=== PATIENT | male | born 1945 | race Caucasian/White ===

== ENCOUNTER 2016-06-12 00:53 | Emergency (ER) | payer MEDICARE, OTHER ==
[~2016-06-12] VITALS: Ht 182.9 cm; Wt 90.9 kg
[2016-06-12 00:58] VITALS: Ht 182.9 cm; Wt 90.9 kg
--- NOTE | 2016-06-12 02:13 | ERD ---
ER Documentation Chief Complaint Date/Time DATE: 06/12/16 TIME: 02:10 Chief Complaint DEPRESSION, ANXIETY, DENIES SI/HI, "I'M JUST MESSED UP AND I NEED HELP" HPI 71-year-old male presents here in emergency department for complaint of depression and anxiety, patient has history of depression and anxiety, has not seen psychiatric doctor for months now. Patient states that he feels more depressed and anxious tonight. Patient denies denies any homicidal ideation. Patient denies any hallucinations or delusions. Patient not currently on any medications. ROS All systems reviewed and are negative except as per history of present illness. Medications Home Meds Reported Medications [none] Unknown Strength No Conflict Check 06/12/16 Allergies Allergies: Coded Allergies: No Known Allergy (Unverified , 06/12/16) PMhx/Soc Medical and Surgical Hx: pt denies Surgical Hx History of Surgery: No Anesthesia Reaction: No Hx Neurological Disorder: No Hx Respiratory Disorders: No Hx Cardiac Disorders: No Hx Psychiatric Problems: Yes (bipolar, anxiety) Hx Miscellaneous Medical Probl: No Hx Alcohol Use: Yes Hx Substance Use: Yes (marijuana) Hx Tobacco Use: Yes Smoking Status: Current every day smoker FmHx Family History: No coronary disease, No diabetes, No other Physical Exam Vitals Vital Signs Date Time Temp Pulse Resp B/P Pulse Ox O2 Delivery O2 Flow Rate FiO2 06/12/16 00:58 97.9 67 16 172/77 99 Physical Exam GENERAL: The patient is well developed and appropriate for usual state of health, in no apparent distress. CHEST: Clear to auscultation bilaterally. There are no rales, wheezes or rhonchi. HEART: Regular rate and rhythm. No murmurs, clicks, rubs or gallops. No S3 or S4. ABDOMEN: Soft, nontender and nondistended. Good bowel sounds. No rebound or guarding. No gross peritonitis. No gross organomegaly or masses. No Santiago sign or McBurney point tenderness. BACK: No midline or flank tenderness. EXTREMITIES: Equal pulses bilaterally. There is no peripheral clubbing, cyanosis or edema. No focal swelling or erythema. Full range of motion. Grossly neurovascularly intact. NEURO: Alert and oriented. Cranial nerves 2-12 intact. Motor strength in all 4 extremities with 5/5 strength. Sensation grossly intact. Normal speech and gait. SKIN: There is no apparent rash or petechia. The skin is warm and dry. HEMATOLOGIC AND LYMPHATIC: There is no evidence of excessive bruising or lymphedema. No gross cervical, axillary, or inguinal lymphadenopathy. PSYCHIATRIC: Patien calm and cooperative, not verbalizing homicidal or suicidal ideations. Normal affect. Procedures/MDM Medical decision making: Patient symptoms like is consistent with his anxiety and depression, this time, patient does not have any symptoms of psychiatric emergencies, no verbalizing or homicidal or suicidal ideation, is not a danger to self or others. Patient is stable at this time, verbalized understanding of instructions to see early childhood education specialist in the morning, patient was given resources were to go, patient was also given resources to a 24-hour psychiatric facility where he can go for emergent evaluation if he wants to be seen tonight. Patient is stable at this time, does not have any physical signs of anxiety, has normal affect, does not verbalize homicidal or suicidal ideation. Patient is advised to return to emergency department for psychiatric emergency, homicidal, suicidal ideation, paranoia, hallucinations or delusions. Departure Diagnosis: Primary Impression: Anxiety Additional Impression: Depression Depression Type: unspecified Qualified Code: F32.9 - Depression, unspecified depression type Condition: Stable Patient Instructions: Anxiety Reaction, Depression Additional Instructions: see psychiatric doctor in 1- 2days, if you feel like hurting yourself or hurting others, please return to ER immediately LEIGH JESSICA NP June 12, 2016 02:13
[2016-06-12] MEDS ORDERED: DIVA250T4 PO (18:12)
[2016-06-12] MEDS ORDERED: CLON1TAB3 PO (18:13)
[2016-06-12] MEDS ORDERED: LOSA50TA6 PO (18:13)
[2016-06-12] MEDS ORDERED: OLAN5TAB5 PO (18:14)
[2016-06-12] MEDS ORDERED: HYDR-906 PO (18:14)
[2016-06-12] MEDS ORDERED: IBUP800T25 PO (18:19)
[2016-06-12] MEDS ORDERED: HYDR-902 PO (18:19)
[2016-06-12] MEDS ORDERED: TAMS-14 PO (18:19)
== END 2016-06-12 02:41 | disposition home or self-care (01) ==
LOC: E/R 00:53 → FTE 02:41
DX: F41.9 Anxiety disorder, unspecified (principal); F32.9 Major depressive disorder, single episode, unspecified; F17.210 Nicotine dependence, cigarettes, uncomplicated
CPT/HCPCS: 99284

== ENCOUNTER 2016-06-12 16:10 | Emergency (ER) | payer MEDICARE, OTHER ==
[~2016-06-12] VITALS: Ht 182.9 cm; Wt 90.9 kg
[2016-06-12] MEDS ORDERED: morphine 2 MG INJ IV STA (16:17)
[2016-06-12] MEDS ORDERED: ONDANSETRON 4 MG INJ IV STA (16:17)
[2016-06-12] MEDS ORDERED: SOD CHLORIDE 0.9% 500 ML IV STA (16:17)
[2016-06-12 16:27] VITALS: Ht 182.9 cm; Wt 90.9 kg
[2016-06-12 16:33] LABS: ADD SCAN DIFF NO
[2016-06-12 16:37] LABS: BASOPHILS % 0.2 % (0.0-2.0); EOSINOPHILS % 0.2 % (0.0-7.0); HEMATOCRIT 39.4 % (42.0-52.0); HEMOGLOBIN 13.4 g/dl (14.0-18.0); LYMPHOCYTES # 2.3 10^3/ul (0.8-2.9); LYMPHOCYTES % 22.3 % (15.0-51.0); MEAN CORPUSCULAR HEMOGLOBIN 31.7 pg (29.0-33.0); MEAN CORPUSCULAR VOLUME 93.1 fl (82.0-101.0); MEAN PLATELET VOLUME 12.4 fl (7.4-10.4); MONOCYTE # 0.6 10^3/ul (0.3-0.9); MONOCYTES % 5.5 % (0.0-11.0); NEUTROPHIL # 7.3 10^3/ul (1.6-7.5); NEUTROPHILS % 71.5 % (39.0-77.0); PLATELET COUNT 179 10^3/UL (140-415); RED BLOOD COUNT 4.23 10^6/ul (4.70-6.10); RED CELL DISTRIBUTION WIDTH 12.3 % (11.5-14.5); WHITE BLOOD COUNT 10.2 10^3/ul (4.8-10.8)
[2016-06-12 16:49] LABS: POTASSIUM 3.9 mmol/L (3.5-5.1)
[2016-06-12 16:51] LABS: ALBUMIN/GLOBULIN RATIO 1.25; BILIRUBIN,INDIRECT 1.6 mg/dl (0-1.1); BILIRUBIN,TOTAL 1.6 mg/dl (0.2-1.3); CREATININE 0.93 mg/dl (0.61-1.24); TOTAL PROTEIN 7.2 g/dl (6.1-8.1)
[2016-06-12 16:52] LABS: CALCIUM 9.1 mg/dl (8.4-10.2)
--- NOTE | 2016-06-12 17:05 | ERA ---
ER Documentation Chief Complaint Date/Time DATE: 06/12/16 TIME: 16:59 Chief Complaint R leg pain and abd pain x 1 day HPI 71-year-old male, poor historian who presents from assisted living facility because of multiple complaints. Initially reported right leg pain but states this is a chronic issue as he has been living with polio for the majority of his life. His leg pain is consistent with chronic pain and unchanged today. No unilateral swelling. Patient also notes approximately 24 hours of mild right -sided abdominal discomfort that is cramping and intermittent. No nausea or vomiting. He does report mild constipation. He has no other complaints. ROS All systems reviewed and are negative except as per history of present illness. Medications Home Meds Active Scripts Ibuprofen* (Motrin*) 800 Mg Tab, 800 MG PO Q6H Y for PAIN AND OR ELEVATED TEMP, #30 TAB Prov:ALDEN LAZAR MD 06/12/16 Tamsulosin Hcl* (Flomax*) 0.4 Mg Cap.er.24h, 0.4 MG PO QPM, #10 CAP Prov:ALDEN LAZAR MD 06/12/16 Hydrocodone/Acetaminophen ([place] 10-325 Tablet) 1 Each Tablet, 1 TAB PO Q6H Y for PAIN, #7 TAB Prov:ALDEN LAZAR MD 06/12/16 Reported Medications Hydrocodone/Acetaminophen ([place] 5-325 Tablet) 1 Each Tablet, 1 EACH PO TID, TAB 06/12/16 Olanzapine* (Zyprexa*) 5 Mg Tablet, 5 MG PO DAILY, #30 TAB 06/12/16 Losartan Potassium* (Losartan Potassium*) 50 Mg Tablet, 50 MG PO DAILY, TAB 06/12/16 Clonazepam* (Clonazepam*) 1 Mg Tablet, 1 MG PO BID Y for ANXIETY, TAB 06/12/16 Divalproex Sodium* (Depakote ER*) 250 Mg Tabsr, 250 MG PO BID, #60 TAB.SA 06/12/16 Discontinued Reported Medications [none] Unknown Strength No Conflict Check 06/12/16 Allergies Allergies: Coded Allergies: No Known Allergy (Unverified , 06/12/16) PMhx/Soc Medical and Surgical Hx: pt denies Surgical Hx History of Surgery: No Anesthesia Reaction: No Hx Neurological Disorder: No Hx Respiratory Disorders: No Hx Cardiac Disorders: No Hx Psychiatric Problems: Yes (bipolar, anxiety) Hx Miscellaneous Medical Probl: No Hx Alcohol Use: Yes Hx Substance Use: Yes (marijuana) Hx Tobacco Use: Yes (pack/day) Smoking Status: Current every day smoker FmHx Family History: No diabetes Physical Exam Vitals Vital Signs Date Time Temp Pulse Resp B/P Pulse Ox O2 Delivery O2 Flow Rate FiO2 06/12/16 18:48 98.0 54 20 134/73 99 Room Air 06/12/16 16:27 98.6 56 18 134/63 100 Physical Exam General: Well developed, well nourished, no acute distress Head: Normocephalic, atraumatic. Eyes: Pupils equally reactive, EOM intact ENT: Moist mucous membranes Neck: Supple, no lymphadenopathy Respiratory: Lungs clear bilaterally, no distress Cardiovascular: RRR, no murmurs, rubs, or gallops Abdominal: Soft, mild diffuse tenderness without rebound or guarding, no peritonitis, large ventral hernia that is easily reducible, no pulsatile mass : Deferred MSK: No edema, no unilateral swelling, 5/5 strength Neurologic: Alert and oriented, moving all extremities, normal speech, no focal weakness, no cerebellar signs Skin: No rash Psych: Normal mood Result Diagram: 06/12/16 1625 06/12/16 1625 Results 24 hrs Laboratory Tests Test 06/12/16 16:25 06/12/16 17:30 White Blood Count 10.210^3/ul Red Blood Count 4.2310^6/ul Hemoglobin 13.4g/dl Hematocrit 39.4% Mean Corpuscular Volume 93.1fl Mean Corpuscular Hemoglobin 31.7pg Mean Corpuscular Hemoglobin Concent 34.0g/dl Red Cell Distribution Width 12.3% Platelet Count 12217^3/UL Mean Platelet Volume 12.4fl Neutrophils % 71.5% Lymphocytes % 22.3% Monocytes % 5.5% Eosinophils % 0.2% Basophils % 0.2% Nucleated Red Blood Cells % 0.0/100WBC Neutrophils # 7.310^3/ul Lymphocytes # 2.310^3/ul Monocytes # 0.610^3/ul Eosinophils # 0.010^3/ul Basophils # 0.010^3/ul Nucleated Red Blood Cells # 0.010^3/ul Sodium Level 139mmol/L Potassium Level 3.9mmol/L Chloride Level 103mmol/L Carbon Dioxide Level 24mmol/L Anion Gap 16 Blood Urea Nitrogen 14mg/dl Creatinine 0.93mg/dl Glucose Level 106mg/dl Calcium Level 9.1mg/dl Total Bilirubin 1.6mg/dl Direct Bilirubin 0.00mg/dl Indirect Bilirubin 1.6mg/dl Aspartate Amino Transf (AST/SGOT) 21IU/L Alanine Aminotransferase (ALT/SGPT) 32IU/L Alkaline Phosphatase 87IU/L Total Protein 7.2g/dl Albumin 4.0g/dl Globulin 3.20g/dl Albumin/Globulin Ratio 1.25 Lipase 69U/L Urine Color LT. YELLOW Urine Clarity CLEAR Urine pH 5.5 Urine Specific Jackson 1.020 Urine Ketones NEGATIVE Urine Nitrite NEGATIVE Urine Bilirubin NEGATIVE Urine Urobilinogen 0.2 E.U./dL Urine Leukocyte Esterase NEGATIVE Urine Microscopic RBC >50/HPF Urine Microscopic WBC 0-2/HPF Urine Squamous Epithelial Cells FEW Urine Bacteria RARE Urine Hemoglobin 3+ Urine Glucose NEGATIVE% Urine Total Protein NEGATIVE Current Medications Medications (Trade) Dose Ordered Sig/Nathaniel Route PRN Reason Start Time Stop Time Status Last Admin Dose Admin Sodium Chloride (NS) 500 ml @ 500 mls/hr Q1H STAT IV 06/12/16 16:17 06/12/16 17:16 DC 06/12/16 16:41 Morphine Sulfate (morphine) 2 mg ONCE STAT IV 06/12/16 16:17 06/12/16 16:19 DC 06/12/16 16:41 Ondansetron HCl (Zofran Inj) 4 mg ONCE STAT IV 06/12/16 16:17 06/12/16 16:19 DC 06/12/16 16:40 Procedures/MDM EKG, MONITORS, & DIAGNOSTIC IMAGING: CT abdomen and pelvis: IMPRESSION: 1. 2.4 cm lipoma in a small bowel loop in the ventral mid small bowel. Series 3 ; image 94. 2. 3.2 mm obstructing ureterolith in the proximal quarter of the right ureter. 1 mm nonobstructive nephrolith upper pole right kidney. 1.5 cm benign cyst lower pole right kidney. 3. Hepatomegaly. 4. There are small bilateral inguinal hernias which contain only fat. 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 6. Atherosclerotic vascular disease. LAB INTERPRETATION: No leukocytosis, no urinary tract infection MEDICAL DECISION MAKING: The patient presents with chronic leg pain that is unchanged. He has mild abdominal pain. Given the patient's age a broad differential exist including acute appendicitis, bowel obstruction, volvulus, constipation among others. Given the patient's description of constipation this is the most likely etiology. Laboratory testing and CT imaging would be appropriate given his age. ER COURSE: The patient CT shows evidence of ureterolithiasis this is likely the etiology of his pain. No evidence of infection or intractable pain. The patient will be given [place], Motrin, Flomax, outpatient urology follow-up. No indication for antibiotics. I kept the patient and/or family informed of laboratory and diagnostic imaging results throughout the emergency room course. DISPOSITION PLAN: We discussed follow up with the patient's primary care doctor within 24 to 48 hours as needed. We also discussed return to the emergency room for worsening symptoms or worsening condition. Outpatient referral: Urology Discharge Medications: [place], Zofran, Motrin, Flomax We discussed the use of narcotics including avoidance of operating heavy machinery and driving as well as its addictive properties. Departure Diagnosis: Primary Impression: Ureterolithiasis Additional Impression: Renal colic on right side Condition: Stable ALDEN LAZAR MD June 12, 2016 17:05
--- NOTE | 2016-06-12 17:39 | RADRPT ---
AMENDMENT: 06/12/2016 5:40:14 PM Hayden Cuevas M.d PROCEDURE: CT scan of the abdomen and pelvis without IV contrast. CLINICAL INDICATION: Abdominal pain. TECHNIQUE: Thin section axial, coronal and sagittal images were performed through the abdomen and pelvis without contrast. Radiation Dose: CTDI: 19.6 and DLP: 1201. One or more of the following dose reduction techniques were used: - Automated exposure control. - Adjustment of the mA and/or kV according to patient size. Use of iterative reconstruction technique. COMPARISON: Chest x-ray 03/17/2016 06:18 a.m. FINDINGS: Soft tissues: There are bilateral inguinal hernias which contain only fat.. Lungs and pleural spaces: There is minimal plate-like atelectasis in the lingula. The remaining elva g hameed are clear. The pleural spaces are normal. Heart: Normal. No pericardial effusion is identified. The liver, common bile duct and gallbladder: The liver measures 17.4 cm AP. No definite hepatic ma ss or intrahepatic biliary ductal dilatation is identified. The gallbladder and gallbladder wall ar e normal. Gastrointestinal: Gastric wall thickening is attributed to incomplete distension. The small bowel l oops are normal. A 2.4 cm lipoma is noted in the ventral central small bowel. The vermiform appen mor and colon are unremarkable. Pancreas: Normal. Kidneys, bladder and adrenal glands : There is a 1 mm nonobstructive nephrolith in the upper pole of the right kidney. There is a 1.5 cm benign cyst in the lower pole of the right kidney. There is mild hydronephrosis of the right kidney and dilatation of the right extrarenal pelvis with a 3.2 mm obstructing ureterolith at the right ureteropelvic junction. The left kidney is normal. The adrenal glands are normal. Spleen: Normal. Lymph nodes: Normal. Reproductive system and pelvis : Normal. Bony elements: There are degenerative changes in the thoracic and lumbosacral spine. No acute bony fracture or bone metastasis is identified. Vasculature: There are atherosclerotic calcifications in the abdominal aorta and left common iliac a rtery. IMPRESSION: 1. 2.4 cm lipoma in a small bowel loop in the ventral mid small bowel. Series 3; image 94. 2. 3.2 mm obstructing ureterolith in the proximal quarter of the right ureter. 1 mm nonobstructive n ephrolith upper pole right kidney. 1.5 cm benign cyst lower pole right kidney. 3. Hepatomegaly. 4. There are small bilateral inguinal hernias which contain only fat. 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 6. Atherosclerotic vascular disease. RPTAT:AAJJ Pascual Cuevas Physician Date Time Electronically viewed and signed by Pascual Cuevas Physician on 06/12/2016 17:40 /
[2016-06-12 18:05] LABS: ADD UMIC YES; URINE BILIRUBIN (Dip) NEGATIVE (NEGATIVE); URINE BLOOD (Dip) 3+ (NEGATIVE); URINE COLOR LT. YELLOW (YELLOW); URINE GLUCOSE (Dip) NEGATIVE (NEGATIVE); URINE KETONES (Dip) NEGATIVE (NEGATIVE); URINE LEUKOCYTE ESTERASE (Dip) NEGATIVE (NEGATIVE); URINE NITRITE (Dip) NEGATIVE (NEGATIVE); URINE TOTAL PROTEIN (Dip) NEGATIVE (NEGATIVE); URINE UROBILINOGEN (Dip) 0.2 E.U./dL (0.1-1.0)
[2016-06-12] MEDS ORDERED: DIVA250T4 PO (18:12)
[2016-06-12] MEDS ORDERED: LOSA50TA6 PO (18:13)
[2016-06-12] MEDS ORDERED: CLON1TAB3 PO (18:13)
[2016-06-12] MEDS ORDERED: OLAN5TAB5 PO (18:14)
[2016-06-12] MEDS ORDERED: HYDR-906 PO (18:14)
[2016-06-12] MEDS ORDERED: HYDR-902 PO (18:19)
[2016-06-12] MEDS ORDERED: TAMS-14 PO (18:19)
[2016-06-12] MEDS ORDERED: IBUP800T25 PO (18:19)
[2016-06-12 18:48] VITALS: BP 134/73; PULSE 54; RESP 20; TEMP 98
[2016-06-12 18:53] LABS: SQUAMOUS EPITHELIAL CELL,UR FEW; URINE RBCS >50 /HPF (0)
[2016-06-12 18:54] LABS: BACTERIA,URINE RARE
== END 2016-06-12 19:13 | disposition home or self-care (01) ==
LOC: E/R 16:10
DX: N20.1 Calculus of ureter (principal); N23 Unspecified renal colic; F17.210 Nicotine dependence, cigarettes, uncomplicated
CPT/HCPCS: 74176; 80053; 81001; 83690; 85025; 96374; 96375; 99285; J2270; J2405; J7040; 81003